=== PATIENT | male | born 1990 | race Caucasian/White ===

== ENCOUNTER 2022-06-16 09:25 | Outpatient (CLI) | payer BC, SELFPAY ==
--- NOTE | 2022-07-04 08:44 | W.PM.SLEEP ---
Sleep Study Details Details Interpreting Provider: Shawn Siegel MD Date of Sleep Study: 06/16/22 Sleep Study Details: STUDY TYPE:? Home ? BMI:? Not recorded ORDERING PROVIDER:? Larry INDICATION:? Concerns about sleep apnea ? SLEEP SUMMARY:? 505 minutes monitored RESPIRATORY SUMMARY:? AHI is 1.7 with minimal positional variation. Low oxygen was 91 0.1% of study oxygen less than 90% Snoring% 0.3 PERIODIC LIMB MOVEMENTS OF SLEEP:? Not recorded CARDIAC:? Range 46-102, mean 57.9 IMPRESSION:? This study does not demonstrate clinically significant obstructive sleep apnea. If sleep disorder is strongly suspected or the patient did not sleep well during this study then an in-lab study is indicated. RECOMMENDATION: See above
== END 2022-06-16 09:26 | disposition home or self-care (01) ==
LOC: SLEEP 06-29 09:27
PROVIDERS: Visit Provider Otolaryngology
DX: R06.81 Apnea, not elsewhere classified (principal); G47.19 Other hypersomnia; R06.83 Snoring
CPT/HCPCS: 95806

== ENCOUNTER 2022-08-18 08:23 | Day surgery (SDC) | payer BC, SELFPAY ==
[2022-08-18] VITALS (12 sets, daily range): BP systolic 119–153; BP diastolic 71–94; PULSE 66–104; RESP 13–19; TEMP 36.6–36.7; O2SAT 92–97; BMI 27.3
[2022-08-18] MEDS: LACTATED RINGERS 1000 ML 1,000 ML 100 ML IV (08:50)
[2022-08-18] MEDS: SODIUM CHLORIDE 0.9 % (FLUSH) 10 ML SYRINGE IVF (08:50)
[2022-08-18] MEDS: OXYMETAZOLINE 0.05% NASAL SPRAY 2 SPRAY NOSTRIL-B (09:30)
--- NOTE | 2022-08-18 11:19 | SUR.OPER ---
PATIENT QUESTIONS ANSWERED SATISFACTORILY PREOPER.ATIVELY PATIENT BROUGHT TO OR RM #1 ON CART. Patient positioned supine on OR #1 bed. ? Perioperative team tucked arms bilaterally at patient side with drawsheet. Final approval of positioning by surgeon.
[2022-08-18] MEDS: COCAINE HCL 4 % 4 ML SOLUTION NOSTRIL-B (11:22)
[2022-08-18] MEDS: BUPIVACAINE 0.5 %/EPI 1:200K 3 ML INJECTION (11:23)
[2022-08-18] MEDS: AYR SALINE NASAL GEL 1 APPLIC NOSTRIL-B (11:33)
[2022-08-18] MEDS: MUPIROCIN 1 GM PACKET 1 APPLIC TOPICAL (11:38)
--- NOTE | 2022-08-18 11:41 | W.PM.ENTPROC ---
Procedure Note Date of procedure: 08/18/22 Procedure: Preop diagnosis nasal obstruction, deviated septum, inferior turbinate hypertrophy Postoperative diagnosis same Procedure nasal septoplasty, submucous partial resection inferior turbinates Under general endotracheal anesthesia patient was prepped draped usual fashion. The nose was decongested and injected. A right hemitransfixion incision was made left anterior and posterior tunnels were created a vertical incision was made to the cartilage and a right posterior tunnel created. The posterior deflected portions of septum including the area for 5 impaction were resected a large piece of bone was trimmed and returned to the posterior intraseptal space. The left premaxillary wing deformity was infractured which effectively reduced the obstruction. A stab incision was made in the anterior of the right inferior turbinate a tunnel created with a [place] dissector. The shalini bone was outfractured and a conservative anterior submucous resection performed. The Coblation Wand was used to cauterize intramurally along the inferior 10%. This was repeated on the left side. The hemitransfixion was closed with 2 4-0 chromic sutures and silastic stents secured with 3-0 nylon. A piece of Merocel packing was trimmed lengthwise coated in Bactroban and placed above the stents on each side. The patient procedure well was taken recovery in satisfactory condition. Blood loss during procedure was less than 25 mL. Complications none Surgeon: Shawn Siegel MD
--- NOTE | 2022-08-18 11:55 | W.ANESCHARGE ---
Anesthesia Charges Start Date/Time Anesthesia Start Date: 08/18/22 Anesthesia Start Time: 11:09 Stop Date/Time Anesthesia Stop Date: 08/18/22 Anesthesia Stop Time: 11:55 Summary Emergency: No
[2022-08-18] MEDS: IBUPROFEN 200 MG TABLET PO (12:32)
== END 2022-08-18 13:35 | disposition home or self-care (01) ==
PROVIDERS: Visit Provider Otolaryngology
PROC: (CPT 30520; principal; 2022-08-18 10:00)
DX: J34.2 Deviated nasal septum (principal); J34.3 Hypertrophy of nasal turbinates; J34.89 Other specified disorders of nose and nasal sinuses
CPT/HCPCS: 30520; 30140; 00160; A9270; J0330; J1100; J2250; J2405; J2704; J3010; J3490; J7120